=== PATIENT | male | born 1990 | race American Indian/Alaskan Native ===

== ENCOUNTER 2018-01-28 02:54 | Emergency (ER) | payer SELFPAY ==
[2018-01-28] MEDS ORDERED: DUONEB *Not for PRN Use IH ONE (03:09)
[2018-01-28] MEDS ORDERED: PROVENTIL IH ONE (03:15)
[2018-01-28] MEDS ORDERED: ATROVENT IH ONE (03:15)
[2018-01-28] MEDS ORDERED: MAGNESIUM SULFATE 2GM/50ML 2 GM/50 ML BAG IV ONE (03:16)
--- NOTE | 2018-01-28 03:21 | Emergency Department Report ---
HPI - General Chief Complaint: Adult Asthma Time Seen by Provider: 01/28/18 03:11 - HPI HPI: Room 7 The patient is a 27-year-old male presented with a chief complaint shortness of breath. The patient stayed for one week he's had exacerbations of his asthma which include shortness of breath and wheezing. The patient states she's also had a cough that is productive of clear sputum. The patient states treatments at home has not helped prompt him to come to the ED. Patient denies any history of fever. Location: Lungs Duration: One week Quality: Feels like asthma Severity: Moderate Modifying factors: [see above] Context: [see above] Mode of transportation: [not driving] ED Past Medical Hx - Past Medical History Previous Medical History?: Yes Hx Asthma: Yes Additional medical history: "ALLERGIES" - Surgical History Past Surgical History?: No - Family History Family history: no significant - Social History Smoking Status: Never Smoker Substance Use Type: None (denies illicit drug use) - Medications Home Medications: Home Medications Medication Instructions Recorded Confirmed Last Taken Type Prednisone [predniSONE 5 mg (6-Day 5 mg PO .TAPER #1 tab.ds.pk 08/10/16 Unknown Rx Pack, 21 Tabs)] guaiFENesin/DEXTROMETHORPHAN 1 each PO Q12H #20 tab 08/10/16 Unknown Rx [Mucinex Dm ER 1,200-60 mg Tab] ALBUTEROL Inhaler [ProAir HFA 2 puff IH QID PRN #1 inhalation 01/28/18 Unknown Rx Inhaler] ALBUTEROL NEB's [Proventil 0.083% 2.5 mg IH TID PRN #60 neb 01/28/18 Unknown Rx NEBS] Prednisone [predniSONE 10 mg 10 mg PO .TAPER #1 tab.ds.pk 01/28/18 Unknown Rx (6-Day Pack, 21 Tabs)] ED Review of Systems ROS: Stated complaint: ASTHMA Other details as noted in HPI Constitutional: denies: fever Respiratory: cough, shortness of breath, wheezing Physical Exam - Physical Exam Physical Exam: GENERAL: The patient is well-developed well-nourished male sitting on stretcher receiving breathing treatments exhibiting slightly increased work of breathing. [] HEENT: Normocephalic. Atraumatic. Extraocular motions are intact. NECK: Trachea midline CHEST/LUNGS: Faint wheezing bilaterally. There is slightly increased work of breathing HEART/CARDIOVASCULAR: Regular. There is no tachycardia. There is no gallop rub or murmur. ABDOMEN: Abdomen is soft, nontender. Patient has normal bowel sounds. There is no abdominal distention. SKIN: There is no rash. There is no diaphoresis. NEURO: The patient is awake, alert, and oriented. The patient is cooperative. The patient has normal speech MUSCULOSKELETAL: There is no evidence of acute injury. ED Course - Reevaluation(s) Reevaluation #1: 01/28/18 04:02 Patient states he is much improved and feels "great." Patient states he is ready to go home ED Medical Decision Making - Radiology Data Radiology results: report reviewed (chest x-ray), image reviewed (chest x-ray) interpreted by me: Chest x-ray-no focal infiltrates, no pneumothorax - Differential Diagnosis asthma exacerbation, bronchitis, pneumonia Critical care attestation.: If time is entered above; I have spent that time in minutes in the direct care of this critically ill patient, excluding procedure time. ED Disposition Clinical Impression: Acute asthma exacerbation, Shortness of breath Disposition: DC-01 TO HOME OR SELFCARE Is pt being admited?: No Does the pt Need Aspirin: No Condition: Stable Instructions: Asthma (ED) Additional Instructions: Return to the emergency department immediately should you develop worsening symptoms, fever, inability to tolerate food or liquid or any other concerns. Prescriptions: ALBUTEROL Inhaler [ProAir HFA Inhaler] 2 puff IH QID PRN #1 inhalation PRN Reason: Shortness Of Breath ALBUTEROL NEB's [Proventil 0.083% NEBS] 2.5 mg IH TID PRN #60 neb PRN Reason: Wheezing Prednisone [predniSONE 10 mg (6-Day Pack, 21 Tabs)] 10 mg PO .TAPER #1 tab.ds.pk Referrals: HYUN KENYON MD [Primary Care Provider] - 3-5 Days Time of Disposition: 04:04
--- NOTE | 2018-01-28 03:39 | XRay Report ---
FINAL REPORT EXAM: XR CHEST 1V AP HISTORY: shortness of breath, cough TECHNIQUE: AP portable view of the chest. PRIORS: None. FINDINGS: The cardiomediastinal silhouette appears normal. The lungs are clear. The bones and soft tissues are unremarkable. IMPRESSION: No evidence of acute cardiopulmonary disease.
[2018-01-28 05:21] VITALS: BP 124/74
== END 2018-01-28 04:42 | disposition home or self-care (01) ==
LOC: ED 02:54
DX: J45.901 Unspecified asthma with (acute) exacerbation (principal)
CPT/HCPCS: 71045; 96365; 96375; 99283; J2930; J3475

== ENCOUNTER 2021-08-31 18:52 | Emergency (ER) | payer OTHER ==
[2021-08-31 19:19] VITALS: BP 118/76
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
== END 2021-08-31 23:57 | disposition home or self-care (01) ==
LOC: ED 18:52
DX: S09.90XA Unspecified injury of head, initial encounter (principal); M54.2 Cervicalgia; M25.511 Pain in right shoulder; M25.512 Pain in left shoulder; J45.909 Unspecified asthma, uncomplicated; V49.49XA Driver injured in collision with other motor vehicles in traffic accident, initial encounter; Y93.89 Activity, other specified; Y92.89 Other specified places as the place of occurrence of the external cause; Y99.8 Other external cause status
CPT/HCPCS: 99282